=== PATIENT | female | born 1975 | race Caucasian/White ===

== ENCOUNTER 2017-08-05 22:18 | Inpatient (IN) | payer MEDICAID ==
[2017-08-05 22:56] LABS: PLATELET COUNT 378 10^3/uL (150-400)
--- NOTE | 2017-08-06 01:25 | EDPHY ---
H & P Stated Complaint: M1, gravely disabled - Personal History Current Tetanus/Diphtheria Vaccine: Unsure Current Tetanus Diphtheria and Acellular Pertussis (TDAP): Unsure - Medical/Surgical History Hx Asthma: No Hx Chronic Respiratory Disease: No Hx Diabetes: No Hx Cardiac Disease: No Hx Renal Disease: No Hx Cirrhosis: No Hx Alcoholism: No Hx HIV/AIDS: No Hx Splenectomy or Spleen Trauma: No Other PMH: HX OF MIGRAINES; HPV W/ PROCEDURE TO FREEZE TISSUE, NL SINCE; HX OF SEXUAL ABUSE; HX ANXIETY, DEPRESSION, PTSD, HOSPITALIZED 2007,2010,2012,2014 FOR PSYCHIATRIC CARE; MULTIPLE SIBLINGS HAVE COMMITTED SUICIDE - Social History Smoking Status: Never smoked Time Seen by Provider: 08/05/17 22:20 HPI/ROS: Chief Complaint: M1 hold HPI: 42-year-old woman with a history of bipolar disorder with psychotic features is presenting after mental health evaluation at [facility] today. Patient has been off her medications for a week. She is not suicidal or homicidal but is gravely disabled. She has been put on a mental health hold by [facility]. They are currently looking for placement. Patient states she has not been taking her medications because she is "stressed out". She states she is normally takes Zyprexa. No recent illness. No fevers or chills. ROS: 10 point Review of Systems is negative except as noted in the HPI. PMH: Bipolar disorder Social History:no alcohol Family History: non-contributory Physical Exam: Gen: Awake, Alert, No Distress HEENT: Nose: no rhinorrhea Eyes: PERRLA, EOMI Mouth: Moist mucosa Neck: Supple, no JVD Chest: nontender, lungs clear to auscultation Heart: S1, S2 normal, no murmur Abd: Soft, non-tender, no guarding Back: no CVA tenderness, no midline tenderness Ext: no edema, non-tender Skin: no rash Neuro: CN II-XII intact, Sensation grossly intact, Strength 5/5 in bilateral upper and lower extremities (Oliver Burgess) Constitutional: Initial Vital Signs Temperature (C) 36.8 C 08/05/17 22:13 Heart Rate 96 08/05/17 22:13 Respiratory Rate 16 08/05/17 22:13 Blood Pressure 120/77 08/05/17 22:13 O2 Sat (%) 97 08/05/17 22:13 O2 Delivery Mode Room Air Allergies/Adverse Reactions: diphenhydramine HCl [From Benadryl] Allergy (Verified 11/28/10 09:08) lithium Allergy (Verified 08/05/17 22:49) quetiapine [From Seroquel] Allergy (Verified 08/05/17 22:49) Home Medications: Medication Instructions Recorded None 11/28/10 Medical Decision Making ED Course/Re-evaluation: Patient is signed out to Dr. Ramon pending placement. No issues during my care this patient overnight. (Oliver Burgess) Other Provider: Care assumed at 6:40 a.m. With plan for placement for grave disability from bipolar disorder. 1115: The patient will be transferred to [address] for inpatient psychiatric hospital bed not available at this facility, in stable condition; accepting physician is Dr. Chandu Cannon. EMTALA form completed. (Bienvenido Ramon) - Data Points Laboratory Results: Laboratory Results 08/05/17 22:43 08/05/17 22:43 Departure - Departure Disposition: [facility] IP Clinical Impression: Bipolar disorder Qualifiers: Active/Remission status: currently active Current bipolar episode type: manic Current episode severity: severe Psychotic features: with psychotic features Qualified Code(s): F31.2 - Bipolar disorder, current episode manic severe with psychotic features Condition: Good Referrals: NONE *PRIMARY CARE P,. [Primary Care Provider] - As per Instructions
[2017-08-06] MEDS ORDERED: NICOTINE POLACRILEX 2 MG GUM B PRN (15:43)
[2017-08-06] MEDS ORDERED: LORazepam 0.5 MG TAB PO PRN (15:43)
[2017-08-06] MEDS ORDERED: OLANZapine DISINTEGR 10 MG TAB PO PRN (15:43)
[2017-08-06] MEDS ORDERED: ACETAMINOPHEN 325 MG TAB PO PRN (15:43)
[2017-08-06] MEDS ORDERED: MAGNESIUM HYDROXIDE 30 ML UDCUP PO PRN (15:43)
[2017-08-06] MEDS ORDERED: MAG HYDROX/AL HYDROX/SIMETH 30 ML UDCUP PO PRN (15:43)
[2017-08-06] MEDS: OLANZapine DISINTEGR 10 MG TAB PO SCH (20:50)
--- NOTE | 2017-08-07 14:13 | BCON ---
[f rep st] BEHAVIORAL HEALTH CONSULTATION INTERNAL MEDICINE CONSULTATION DATE OF CONSULTATION: 08/07/2017 REFERRING PHYSICIAN: Chandu Cannon MD REASON FOR REFERRAL: Medical clearance for inpatient behavioral health stay. HISTORY OF PRESENT ILLNESS: This patient was referred to the [facility] Emergency Department from a Mental Health crisis Center. She was found to be gravely disabled. She had stopped taking her psychiatric medications. She was evaluated by the mental health team and admitted for further psychiatric care. She is currently without any acute complaints other than feeling fatigue. PAST MEDICAL HISTORY: 1. Bipolar disorder. 2. Migraine headaches. 3. Cervical HPV. 4. Miscarriages. PAST SURGICAL HISTORY: She has had a cryoablation procedure for HPV on the cervix and she has had a D and C. MEDICATIONS: Prior to admission, she says she recently had been on olanzapine. SOCIAL HISTORY: She is . She is a nonsmoker. She has a son with whom she lives. She does not have a career. FAMILY HISTORY: She has multiple siblings who have committed suicide. REVIEW OF SYSTEMS: She reports poor sleep recently. She says she occasionally snores. When she does sleep, she feels refreshed. She denies fevers, chills, weight change, cough, dyspnea, nausea, vomiting, constipation, diarrhea, or dysuria. Otherwise, a 10-point Review of Systems is negative. PHYSICAL EXAM: VITAL SIGNS: Blood pressure is 132/75, heart rate is 95, respiratory rate is 16, oxygen saturation is 100% on room air. Temperature is 36.6 degrees centigrade. Her weight is 90 kg for a body mass index of 31.1. GENERAL: This is an obese woman, lying down in bed, sits up for the exam, dressed in street clothes, cooperative and in no acute distress. HEENT: Extraocular movements are intact. Pupils are equal, round, reactive to light. Mucous membranes are moist. Dentition is in good condition. She has a crowded airway, Mallampati class 3. NECK: Supple. HEART: Regular rate and rhythm with no murmurs, rubs, or gallops. LUNGS: Clear to auscultation bilaterally. ABDOMEN: Benign. EXTREMITIES: There is no cyanosis, clubbing, or edema. NEUROLOGIC: She is alert and oriented x3. Cranial nerves 2 through 12 are grossly intact. There is no focal weakness and sensation is intact to light touch. LABORATORY STUDIES: Drawn in the emergency department, CBC showed an elevated white blood cell count of 13.28. There was no left shift. There was predominance of neutrophils and monocytes. Serum chemistry revealed normal renal function and electrolytes, but for a slightly low carbon dioxide at 19, glucose was slightly high at 111, but this may not have been fasting drawn at 2243 yesterday evening. Beta hCG was negative for . Toxicology screen in the serum was negative for ethyl alcohol and the urine was negative for any substances of abuse. ASSESSMENT/RECOMMENDATIONS: 1. Mental health issues pending further evaluation and management per Psychiatry and the Mental Health Team. 2. Obesity. Consider avoiding medications which might cause further weight gain though psychosocial stabilization takes first priority at present. She was encouraged to exercise. I see no medical contraindications to this patient's continued stay on the inpatient Behavioral Health Unit or to any psychiatric medications or procedures. Thank you very much for including me in the care of this patient and please do not hesitate to contact me or the hospitalist service should there be any need for further medical evaluation. /[id number]/MODL MTDD
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
[2017-08-07] MEDS: OLANZapine DISINTEGR 10 MG TAB PO SCH (22:52)
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
[2017-08-08] MEDS: OLANZapine DISINTEGR 10 MG TAB PO SCH (21:22)
[2017-08-09] MEDS: OLANZapine DISINTEGR 10 MG TAB PO SCH (16:09)
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
[2017-08-10] MEDS ORDERED: OLANZapine DISINTEGR 10 MG TAB PO SCH (11:37)
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
[2017-08-10] MEDS: OLANZapine DISINTEGR 5 MG TAB PO SCH (20:58)
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
[2017-08-11] MEDS: OLANZapine DISINTEGR 5 MG TAB PO SCH (18:14)
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
[2017-08-12] MEDS: OLANZapine DISINTEGR 5 MG TAB PO SCH ×4 (20:43→21:27)
[2017-08-13 06:43] VITALS: BP 121/67
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
== END 2017-08-13 08:30 | disposition home or self-care (01) | DRG 885 ==
LOC: EDUNIT# → BBEH 08-06 13:08
PROVIDERS: ADMIT Psychiatry & Neurology Psychiatry; ATTEND Psychiatry & Neurology Psychiatry
DX: F22 Delusional disorders (principal); F25.0 Schizoaffective disorder, bipolar type; T43.596A Underdosing of other antipsychotics and neuroleptics, initial encounter; E66.9 Obesity, unspecified; Z59.0 Homelessness
CPT/HCPCS: 80305; G0480